=== PATIENT | female | born 1970 ===

== ENCOUNTER 2022-09-23 13:26 | Outpatient (CLI) | payer BC, SELFPAY ==
[2022-09-23 23:42] LABS: Chlamydia DNA Amplified* NOT DETECTED (No Detected); GC DNA Amplified* NOT DETECTED (No Detected)
== END 2022-09-23 13:27 | disposition home or self-care (01) ==
PROVIDERS: PCP Family Medicine; Visit Provider Family Medicine
DX: R53.83 Other fatigue (principal); E03.9 Hypothyroidism, unspecified; N95.1 Menopausal and female climacteric states; R73.03 Prediabetes; Z11.3 Encounter for screening for infections with a predominantly sexual mode of transmission; Z11.59 Encounter for screening for other viral diseases
CPT/HCPCS: 80053; 80061; 83001; 84443; 86592; 86703; 86803; 87491; 87591

== ENCOUNTER 2022-09-30 15:10 | Outpatient (CLI) | payer BC, SELFPAY ==
[2022-09-30 22:24] LABS: Microalbumin Urine 3 mg/dL
[2022-09-30 22:25] LABS: Creatinine Urine 314.7 mg/dL; Microalbumin Creatinine Ratio 0 mg/g (0-30)
== END 2022-09-30 15:11 | disposition home or self-care (01) ==
PROVIDERS: PCP Family Medicine; Visit Provider Family Medicine
DX: E11.9 Type 2 diabetes mellitus without complications (principal)
CPT/HCPCS: 82043; 82570

== ENCOUNTER 2023-11-24 15:11 | Outpatient (CLI) | payer BC, SELFPAY | END 2023-11-24 15:12 | disposition home or self-care (01) | PROVIDERS: PCP Family Medicine; Visit Provider Family Medicine | DX: Z00.00 Encounter for general adult medical examination without abnormal findings (principal); I10 Essential (primary) hypertension; E66.9 Obesity, unspecified; R53.83 Other fatigue; E78.5 Hyperlipidemia, unspecified; R68.82 Decreased libido; E03.9 Hypothyroidism, unspecified; E11.9 Type 2 diabetes mellitus without complications; F32.A Depression, unspecified; F41.9 Anxiety disorder, unspecified | CPT/HCPCS: 80053; 80061; 82043; 82306; 82570; 84443 ==

== ENCOUNTER 2024-02-23 11:09 | Outpatient (CLI) | payer BC, SELFPAY | END 2024-02-23 11:10 | disposition home or self-care (01) | PROVIDERS: PCP Family Medicine; Visit Provider Family Medicine | DX: E03.9 Hypothyroidism, unspecified (principal); I10 Essential (primary) hypertension | CPT/HCPCS: 80053; 84443 ==

== ENCOUNTER 2024-08-28 11:24 | Outpatient (CLI) | payer BC, SELFPAY | END 2024-08-28 11:25 | disposition home or self-care (01) | PROVIDERS: PCP Family Medicine; Visit Provider Family Medicine | DX: I10 Essential (primary) hypertension (principal); E03.9 Hypothyroidism, unspecified; E78.5 Hyperlipidemia, unspecified; E66.9 Obesity, unspecified; R53.83 Other fatigue; E11.9 Type 2 diabetes mellitus without complications; R55 Syncope and collapse; N83.9 Noninflammatory disorder of ovary, fallopian tube and broad ligament, unspecified; R82.90 Unspecified abnormal findings in urine | CPT/HCPCS: 80053; 82306; 83690; 84443; 86304 ==

== ENCOUNTER 2024-12-21 09:00 | Outpatient (CLI) | payer BC, SELFPAY | END 2024-12-21 09:01 | disposition home or self-care (01) | PROVIDERS: PCP Family Medicine; Visit Provider Family Medicine | DX: I10 Essential (primary) hypertension (principal); E03.9 Hypothyroidism, unspecified; E78.5 Hyperlipidemia, unspecified; E11.9 Type 2 diabetes mellitus without complications; R68.82 Decreased libido; F41.9 Anxiety disorder, unspecified | CPT/HCPCS: 80053; 80061; 82043; 82570; 84443 ==

== ENCOUNTER 2025-03-21 13:07 | Outpatient (CLI) | payer BC, SELFPAY | END 2025-03-21 13:08 | disposition home or self-care (01) | PROVIDERS: PCP Family Medicine; Visit Provider Family Medicine | DX: E03.9 Hypothyroidism, unspecified (principal); R00.0 Tachycardia, unspecified; R55 Syncope and collapse; I10 Essential (primary) hypertension | CPT/HCPCS: 84443 ==